=== PATIENT | male | born 1980 | race Caucasian/White ===

== ENCOUNTER 2021-11-07 19:09 | Emergency (ER) | payer MEDICAID, MEDICARE ==
[~2021-11-07] VITALS: Ht 180.3 cm; Wt 86.4 kg
[~2021-11-07 19:09] MED LIST: DULO-114 PO; RISP2TAB76 PO
[2021-11-07 19:41] VITALS: BP 136/87
[2021-11-07] MEDS ORDERED: SULF-261 PO (20:29)
[2021-11-07] MEDS ORDERED: HYDR30OI13 TP (20:30)
== END 2021-11-07 20:30 | disposition home or self-care (01) ==
LOC: EMS 19:09
DX: L03.116 Cellulitis of left lower limb (principal); L03.811 Cellulitis of head [any part, except face]; S70.362A Insect bite (nonvenomous), left thigh, initial encounter; S00.06XA Insect bite (nonvenomous) of scalp, initial encounter; W57.XXXA Bitten or stung by nonvenomous insect and other nonvenomous arthropods, initial encounter; Y93.89 Activity, other specified; Y92.89 Other specified places as the place of occurrence of the external cause; Y99.8 Other external cause status
CPT/HCPCS: 99283; Z7502

== ENCOUNTER 2022-03-19 11:19 | Emergency (ER) | payer MEDICAID, MEDICARE ==
[~2022-03-19] VITALS: Ht 172.7 cm; Wt 81.8 kg
[~2022-03-19 11:19] MED LIST changes: +HYDR30OI13 TP; +SULF-261 PO
[2022-03-19 12:33] LABS: COVID AG,FIA SOURCE NASOPHARYNGEAL
[2022-03-19 12:52] LABS: INFLUENZA TYPE A NEGATIVE FOR TYPE A (NEGATIVE); INFLUENZA TYPE B NEGATIVE FOR TYPE B (NEGATIVE)
[2022-03-19 13:08] LABS: RAPID GROUP A STREP NEGATIVE (NEGATIVE)
[2022-03-19 14:07] VITALS: BP 123/79
[2022-03-19] MEDS ORDERED: DOXYCYCLINE HYCLATE 100 MG TABLET PO ONE (14:30)
[2022-03-19] MEDS ORDERED: LIDOCAINE/PF 1% 2 ML VIAL IM ONE (14:30)
[2022-03-19] MEDS ORDERED: CefTRIAXone SODIUM 1 GM/VIAL IM ONE (14:30)
[2022-03-19] MEDS ORDERED: ACETAMINOPHEN 500 MG TABLET PO ONE (14:30)
[2022-03-19] MEDS ORDERED: DOXY-354 PO (14:48)
== END 2022-03-19 15:57 | disposition home or self-care (01) ==
LOC: EMS 11:19
DX: B34.9 Viral infection, unspecified (principal); Z20.822 Contact with and (suspected) exposure to COVID-19; Z29.9 Encounter for prophylactic measures, unspecified
CPT/HCPCS: 99283; 87426; 87430; 87804; 87491; 87591; 96372; J0696; J3490